=== PATIENT | female | born 1975 | race African-American/Black ===

== ENCOUNTER 2019-11-02 22:55 | Inpatient (IN) ==
[2019-11-03] MEDS ORDERED: NS 1,000 ML IV PRN (00:03)
[2019-11-03 01:18] LABS: URINE SOURCE CLEAN CATCH
[2019-11-03 01:22] LABS: BASO# 0.07 X1000 (0.0-0.2); BASO% 0.6 % (0.0-0.8); EOS# 0.17 X1000 (0.0-0.7); EOS% 1.4 % (0.0-10.0); HEMATOCRIT 40.5 % (37.0-47.0); HEMOGLOBIN 12.3 g/dL (12.0-16.0); IMM GRAN# 0.03 X1000 (0.0-0.04); IMM GRAN% 0.2 % (0.0-0.5); LYMPH# 4.16 X1000 (1.2-3.4); MCH 26.4 PG (27-31); MCHC 30.4 g/dL (33-37); MCV 86.9 FL (81-99); MONO# 0.89 X1000 (0.11-0.59); MONO% 7.3 % (1.7-9.3); MPV 9.8 FL (7.4-10.4); NEUT% 56.5 % (42.2-75.2); PLT 384 X1000 (130-400); RBC 4.66 XMIL (4.2-5.4); RDW 13.9 % (11.5-14.5); WBC 12.22 X1000 (4.8-10.8)
[2019-11-03 01:23] LABS: BILIRUBIN URINE NEGATIVE (NEGATIVE); BLOOD URINE TRACE (NEGATIVE); COLOR YELLOW; GLUCOSE URINE NEGATIVE (NEGATIVE); KETONE URINE NEGATIVE (NEGATIVE); LEUKOCYTES URINE SMALL (NEGATIVE); NITRITE URINE NEGATIVE (NEGATIVE); PH URINE 5.5; PROTEIN URINE NEGATIVE (NEGATIVE); SP GRAVITY URINE 1.027; TURBIDITY URINE CLEAR (CLEAR); UROBILINOGEN URINE NORMAL (NORMAL)
[2019-11-03 01:24] LABS: UR EPITHELIAL CELLS <10 /HPF (<10); URINE BACTERIA NEGATIVE /HPF; URINE RBC <10 /HPF (<10)
[2019-11-03 01:31] LABS: INR 0.9; PROTIME 12.3 Seconds (11.0-16.0)
[2019-11-03 01:32] LABS: PTT 29.3 Seconds (22.3-41.8)
[2019-11-03 01:47] LABS: UR AMPHETAMINES QUAL NONE DETECTED (NONE DETECT); UR BARBITUATES QUAL NONE DETECTED (NONE DETECT); UR BENZODIAZEPIN QUAL NONE DETECTED (NONE DETECT); UR CANNABINOIDS QUAL NONE DETECTED (NONE DETECT); UR COCAINE QUAL PRESUMPTIVE POSITIVE (NONE DETECT); UR METHADONE QUAL NONE DETECTED (NONE DETECT); UR OPIATES QUAL NONE DETECTED (NONE DETECT); UR OXYCODONE QUAL NONE DETECTED (NONE DETECT); UR PCP QUAL NONE DETECTED (NONE DETECT)
--- NOTE | 2019-11-03 01:50 | EKG Report ---
Test Performed on : 11/03/2019 01:13:06 AM Test Reason : Stroke like symptoms Blood Pressure : / mmHG Vent. Rate : 069 BPM Atrial Rate : 069 BPM P-R Int : 170 ms QRS Dur : 092 ms QT Int : 398 ms P-R-T Axes : 019 054 027 degrees QTc Int : 426 ms Normal sinus rhythm. Cannot rule out Anterior infarct , age undetermined Abnormal ECG No previous ECGs available Unconfirmed Result
--- NOTE | 2019-11-03 02:11 | PROVIDER DOCUMENTATION ---
This chart was entered by Yana Blanc Scribe, acting as scribe for Gilberto Montalvo MD. HPI-Neurological Disorder - General Chief Complaint: Headache Stated Complaint: BP PROBLEMS Time Seen by Provider: 11/03/19 00:02 Source: patient Allergies/Adverse Reactions: Patient Allergies Allergy/AdvReac Type Severity Reaction Status Date / Time No Known Allergies Allergy Verified 11/03/19 00:45 Home Medications: Home Medication List Medication Instructions Recorded Confirmed Last Taken Type Amlodipine Besylate [Norvasc] 10 tab PO DAILY 12/22/17 11/03/19 03/10/18 09:30 History - History of Present Illness-Neuro Nature of Presenting Problem: Pt is a 44 yobf presenting in the ED with c/o left sided headache and heavy feeling in her left side, arm and leg. Pt states that she sleeps heavily on her left side normally. Pt denies lack of sensation, numbness, or tingling or speech being affected, only heavyness to lt side of body. Pt has a hx of HTN. Pt is alert and nontoxic in appearance. Severity: reports: mild Onset/Duration: reports: unsure, 3 days ago Timing: reports: still present, constant Context: reports: none Character of Altered Mental Status: reports: N/A Any recent trauma/injury?: reports: none Character of Deficits: reports: altered sensation (pt describes feeling as "heaviness on left side") New weakness or altered sensation location:: reports: RUE (heaviness), RLE (heaviness) Cognitive Baseline: alert, oriented x3 Gait Baseline: walks without assistance Associated Symptoms: reports: headache (pt says left sided) Similar Symptoms Previously?: No Recently seen or treated by another doctor?: No Review of Systems - Adult - REVIEW OF SYSTEMS - ADULT Constitutional: denies: chills, fever Eyes: reports: no symptoms reported Ears, Nose, Mouth & Throat: reports: no symptoms reported Cardiovascular: denies: chest pain, syncope Respiratory: denies: cough, shortness of breath Gastrointestinal: denies: nausea, vomiting Genitourinary: reports: no symptoms reported Musculoskeletal: reports: no symptoms reported Integumentary: reports: no symptoms reported Neurological: reports: see HPI, headache/migraines, other (pt reports "heavy feeling in left side") Psychiatric: reports: no symptoms reported Endocrine: reports: no symptoms reported Hematologic/Lymphatic: reports: no symptoms reported Allergic/Immunologic: reports: no symptoms reported All Other Systems: Reviewed and Negative Past History - Adult - PAST MEDICAL HISTORY-ADULT Review of Records: reports: Old Records Reviewed, Nursing Assessment Review, Medications Reviewed, Social history reviewed & non-contributory. Major Childhood Illnesses: reports: denies history Cardiovascular: reports: HTN Respiratory: reports: denies history Gastrointestinal: reports: GERD Obstetrical/Gynecological: reports: denies history Genitourinary: reports: denies history Musculoskeletal: reports: denies history Neurological: reports: denies history Endocrine/Immune: reports: denies history Other Conditions: reports: denies history - PRIOR SURGERIES/PROCEDURES Surgical/Procedure History: reports: reviewed, not pertinent - IMMUNIZATION STATUS Childhood Immunizations: See Nurse Assessment Flu Vaccine: See Nurse Assessment - FAMILY HISTORY Family History: reviewed, not pertinent - SOCIAL HISTORY Living Situation: family Physical Exam- Neurological - Physical Exam-Neuro Initial Vital Signs Reviewed: Yes General Appearance: appears well, alert, no apparent distress, obese Eye Exam: bilateral eye: normal inspection, PERRL, EOMI HENMT: normocephalic/atraumatic, moist mucous membranes, normal ENT inspection Head Injury: no evidence of injury Neck: non-tender, full range of motion, supple, normal inspection Respiratory: chest non-tender, lungs clear, normal breath sounds, no pleuratic chest pain, no respiratory distress, no accessory muscle use Cardiovascular: normal peripheral pulses, regular rate, rhythm, no edema, no gallop, no JVD, no murmur Abdominal Exam: normal bowel sounds, non tender, soft, no organomegaly, no pulsatile mass Lymphatic: no adenopathy Extremity: normal range of motion, non-tender, normal gait, normal inspection, no pedal edema, no calf tenderness, normal capillary refill director of purchasing Exam: normal hearing, normal speech, PERRL Coordination/Gait: normal gait Motor/Sensory: no motor deficit, no sensory deficit Neurologic: grossly normal Integumentary: normal color, normal turgor, warm/dry Psych/Mental Status: normal mood/affect, normal thought content, normal thought process, oriented x 3 - Glascow Coma Scale Best Eye Response: (4) open spontaneously Best Verbal Response: (5) oriented Best Motor Response: (6) obeys commands Progress - PLAN OF CARE/RESULTS Progress/Plan/Lab Results: Vital Signs - 8 hr 11/02/19 23:00 11/03/19 01:30 Temperature 98.4 F 98.0 F Pulse Rate 73 71 Respiratory Rate 18 18 Blood Pressure 154/95 141/94 O2 Sat by Pulse Oximetry 97 Laboratory Results - last 24 hr 11/03/19 11/03/19 11/03/19 01:09 01:09 01:09 WBC 12.22 H RBC 4.66 Hgb 12.3 Hct 40.5 MCV 86.9 MCH 26.4 L MCHC 30.4 L RDW Std Deviation 13.9 Plt Count 384 MPV 9.8 Immature Gran % (Auto) 0.2 Neut % (Auto) 56.5 Lymph % (Auto) 34.0 Denali % (Auto) 7.3 Eos % (Auto) 1.4 Baso % (Auto) 0.6 Immature Gran # (Auto) 0.03 Neut # (Auto) 6.90 H Lymph # (Auto) 4.16 H Denali # (Auto) 0.89 H Eos # (Auto) 0.17 Baso # (Auto) 0.07 PT INR PTT (Actin FS) Troponin T High Sens < 6 Urine Source Urine Color Urine Turbidity Urine pH Ur Specific Hamilton Urine Protein Ur Glucose (Stick) Ur Ketones (Stick) Urine Blood Urine Nitrite Urine Bilirubin Urobilinogen Dipstick Urine Leukocytes Urine WBC (Auto) Urine RBC (Auto) U Epithel Cells (Auto) Urine Bacteria (Auto) Urine Opiates Screen NONE DETECTED Ur Oxycodone Screen NONE DETECTED Ur Methadone, Qual NONE DETECTED Ur Barbiturates Screen NONE DETECTED Ur Phencyclidine Scrn NONE DETECTED Ur Amphetamines Screen NONE DETECTED U Benzodiazepines Scrn NONE DETECTED Urine Cocaine Screen PRESUMPTIVE POSITIVE A U Cannabinoids Screen NONE DETECTED 11/03/19 11/03/19 01:09 01:09 WBC RBC Hgb Hct MCV MCH MCHC RDW Std Deviation Plt Count MPV Immature Gran % (Auto) Neut % (Auto) Lymph % (Auto) Denali % (Auto) Eos % (Auto) Baso % (Auto) Immature Gran # (Auto) Neut # (Auto) Lymph # (Auto) Denali # (Auto) Eos # (Auto) Baso # (Auto) PT 12.3 INR 0.90 PTT (Actin FS) 29.3 Troponin T High Sens Urine Source CLEAN CATCH Urine Color YELLOW Urine Turbidity CLEAR Urine pH 5.5 Ur Specific Hamilton 1.027 Urine Protein NEGATIVE Ur Glucose (Stick) NEGATIVE Ur Ketones (Stick) NEGATIVE Urine Blood TRACE A Urine Nitrite NEGATIVE Urine Bilirubin NEGATIVE Urobilinogen Dipstick NORMAL Urine Leukocytes SMALL A Urine WBC (Auto) 10-20 A Urine RBC (Auto) <10 U Epithel Cells (Auto) <10 Urine Bacteria (Auto) NEGATIVE Urine Opiates Screen Ur Oxycodone Screen Ur Methadone, Qual Ur Barbiturates Screen Ur Phencyclidine Scrn Ur Amphetamines Screen U Benzodiazepines Scrn Urine Cocaine Screen U Cannabinoids Screen Orders Category Date Time Status Cardiac Monitoring DIRECTED Care 11/03/19 00:03 Active Finger Stick Blood Sugar (ED) DIRECTED Care 11/03/19 00:03 Active Misc. NRSG Communication Order DIRECTED Care 11/03/19 00:03 Active Oxygen Therapy- ED Nursing DIRECTED Care 11/03/19 00:03 Active Saline Loc NOW Care 11/03/19 00:03 Active CHEST-PORTABLE [RAD] Stat Exams 11/03/19 00:[address] HEAD W/O CONTRAST [CT] Stat Exams 11/03/19 00:03 Taken CBC WITH ELECTRONIC DIFF [HEME] Stat Lab 11/03/19 01:09 Completed COMPREHENSIVE METABOLIC PANEL [CHEM] Stat Lab 11/03/19 01:09 Received PROTIME WITH INR [COAG] Stat Lab 11/03/19 01:09 Completed PTT [COAG] Stat Lab 11/03/19 01:09 Completed TROPONIN T HIGH SENSITIVITY Stat Lab 11/03/19 01:09 Completed URINALYSIS W/POSS RFLX CULT [URINALYSIS] Stat Lab 11/03/19 01:09 Completed URINE DRUG SCREEN Stat Lab 11/03/19 01:09 Completed 0.9% Sodium Chloride Inj [Ns] 1,000 ml Med 11/03/19 00:03 Active IV 125 mls/hr EKG [EKG] Stat Ther 11/03/19 00:03 Draft Result Diagrams: 11/03/19 01:09 - XRAY 1 XRAY Study: Chest Impression: See EMR Report - CT/MRI 1 CT Study: Head Impression: Normal ([facility] Madhav Arevalo MD; No CT evidence for an acute intracranial abnormality.) - CONSULTS/PCP/HOSPITALIST Notification #1 *Consult/PCP/Hospitalist*: Dr Mccloud Time Discussed: 02:07 Consult Disposition: Will see in ED, Admit Departure - Departure Date of Disposition Decision: 11/03/19 Time of Disposition Decision: 02:07 DIAGNOSIS: CVA (cerebral vascular accident), Substance abuse, HTN (hypertension) Disposition: ADMITTED INPATIENT 09 Certified Medical Emergency: Emergent Condition: Fair Referrals and Follow-Ups: Johnathan Ho MD [Primary Care Provider] - - Critical Care Note This patient required my direct & personal management of CC.: No Attestation - Physician/ APRIL Attestation Patient care was provided by Advanced Practice Provider:: No The physician spent face to face time with patient:: Yes Advanced Practice Provider documentation review:: Supervising physician onsite and consulted in the evaluation and care of this patient. The physician did have a face to face encounter with the patient. - NIH Stroke Scale NIH Type: Initial Evaluation Level of Consciousness: 0-Alert LOC Questions (ask month and age): 0-Answers Both Correctly LOC Commands (ask to open & close eyes;make a fist, let go): 0-Obeys Both Correctly Best Gaze (horizontal eye movement): 0-Normal Visual (use finger movement, counting or visual threat): 0-No Visual Loss Facial Palsy (show teeth or raise eyebrows & close eyes tght: 0-Symmetrical Movement Motor Function-left arm: 1-Drift Motor Function-right arm: 0-Normal Motor Function-left le-Drift Motor Function-right le-Normal Limb Ataxia(arwbcl-pzkk-[id number], or heel to bentley): 0-No Ataxia Sensory(pin prick to face,arms,trunk,legs-compare side/side): 0-No Ataxia Best Language(name item/read sentence.Ex-Down to Earth): 0-No Aphasia Dysarthria(Pt read words or say words Ex.Mama,Tip-Top,Thanks: 0-Normal Articulation Extinction and Inattention: 0-Normal Modified [place] Score Criteria: 0-no symptoms This chart was documented by the indicated scribe, (Yana Blanc, Scribe) and accurately reflects the services I performed and decisions made by me, Gilberto Montalvo MD, as attested by the provider's signature.
[2019-11-03 02:31] LABS: AGAP 16; BUN 14 mg/dL (8-22); CHLORIDE 99 mmol/L (98-107); COSMO 279; CREATININE 0.9 mg/dL (0.5-0.9); GLUCOSE 112 mg/dL (70-104); SODIUM 139 mmol/L (136-145); TCO2 24 mmol/L (25-35)
[2019-11-03 02:32] LABS: ALBUMIN 4.2 g/dL (3.5-5.0); ALKALINE PHOSPHATASE 85 U/L (32-104); CALCIUM 9.7 mg/dL (8.8-10.2); TOTAL BILIRUBIN 0.22 mg/dL (0.20-1.00); TOTAL PROTEIN 8.4 g/dL (6.3-8.3)
[2019-11-03 02:33] LABS: GOT 14 U/L (10-30); GPT 16 U/L (10-36)
[2019-11-03] MEDS ORDERED: ZOFRAN IV PRN (04:25)
[2019-11-03] MEDS ORDERED: TYLENOL PO PRN (04:25)
[2019-11-03] MEDS ORDERED: ASPIRIN EC PO ONE (04:26)
[2019-11-03] MEDS ORDERED: NS 1,000 ML IV SCH (04:45)
--- NOTE | 2019-11-03 07:04 | Diag Imaging Result Doc PS360 ---
CHEST-PORTABLE - 11/03/2019 INDICATION: stroke like symptoms COMPARISON: None FINDINGS: Lung volumes are low. Heart size is borderline enlarged. Pulmonary vascularity is normal. No infiltrates or edema. IMPRESSION: Low lung volumes. Borderline cardiomegaly. Electronically signed by Paul Webster 11/03/2019 7:02 AM
[2019-11-03 07:12] LABS: HEMOGLOBIN A1C 6.3 % (4.8-6.0)
--- NOTE | 2019-11-03 08:07 | Diag Imaging Result Doc PS360 ---
EXAM: CT HEAD W/O CONTRAST HISTORY: stroke like symptoms TECHNIQUE: CT head without contrast COMPARISON: None. FINDINGS: No parenchymal hemorrhage. No epidural or subdural hematoma. No subarachnoid hemorrhage. No mass identified on this noncontrasted exam. No hydrocephalus. No sinus opacification. IMPRESSION: No hemorrhage. Negative brain CT without contrast. A preliminary report was given at 12:33 AM This exam was performed using automated exposure control, adjustment of mA or kV according to patient size, and/or use of iterative reconstruction technique. Electronically signed by Ramirez Espinal 11/03/2019 8:05 AM
--- NOTE | 2019-11-03 08:11 | HISTORY AND PHYSICAL ---
PRIMARY CARE PROVIDER: Dr. Johnathan Ho. CHIEF COMPLAINT: Headache with a left-sided heavy feeling. HISTORY OF PRESENT ILLNESS: Ms. Osei is a 44-year-old, -[place] female who states that for approximately 4 to 5 days now that she has had a heavy feeling down the left side of her body. She has reported an intermittent headache with some occasional blurry vision. She also reports that she has had a heavy type feeling down the left side of her body, mainly in her left arm and left leg. She also reports that she occasionally has a tightness type feeling in her hand as though she has pulled a muscle. She does report some tingling in her left second toe. The patient does report a history of occasional headaches, though denies any known history of migraines. She denies any known history of previous CVA. She does report that she has high blood pressure and was recently out of her medicine for a short period of time, though states that she has gotten this filled and has been taking it over the last few days. She denies any dizziness or feeling lightheaded. She denies any chest pain or shortness of breath. She denies any cough. She denies any abdominal pain, nausea, vomiting, or diarrhea. She denies any dysuria or urinary frequency. The patient states she does have some arthritis pain in her left leg frequently. States she does work long hours and stands on her feet all day, though this is not of new onset and has not worsened. Other than this and her tingling that she reports in her left second toe, she denies any other pain, numbness, tingling, or swelling in extremities. She denies any fever, body aches, or chills. She denies being sick recently or being around anyone who has been sick or has had flu or upper respiratory symptoms. She denies any known exposure to any individuals who have been exposed to Covid-19 or have been diagnosed with Covid-19. Upon evaluation in the ER, the patient was noted to have mild leukocytosis with a white blood cell count of 12,220. She was mildly hyperglycemic with a glucose of 112. Other than this, all other chemistries were within normal limits. Urinalysis did show some trace blood, small leukocytes, and 10 to 20 white blood cells. Her urine was negative. She was positive for cocaine in her urine drug screen, though did deny using this illicit drug. In the ER, they did perform a chest x-ray which showed no acute abnormality, just showed some low lung volumes and borderline cardiomegaly. Her CT of the head did not show any acute intracranial abnormality either. At this time, the patient will be admitted for further evaluation of a possible CVA. REVIEW OF SYSTEMS: A 14 point review of systems was conducted with the patient and all were negative except for pertinent positives mentioned above in the HPI. PAST MEDICAL HISTORY: 1. Gastroesophageal reflux disease. 2. Hypertension. PAST SURGICAL HISTORY: Tubal ligation. SOCIAL HISTORY: The patient is a former smoker, though she stated she never smoked on a regular basis. It was only occasionally, kind of socially. She reports occasional alcohol use and states this is mainly on the weekends. As previously mentioned, she denies any illicit drug use. She did test positive for cocaine. The patient denies using this drug. FAMILY HISTORY: Positive for her mother and father both having diabetes mellitus and hypertension. She reports that her maternal aunt did have a history of stroke as well. ALLERGIES: Patient has no known allergies. HOME MEDICATIONS: Norvasc 10 mg p.o. daily. DIAGNOSTIC DATA/LABORATORY RESULTS: White blood cell count is 12,220, hemoglobin 12.3, hematocrit 40.5, platelet count is 384,000. PT 12.3, INR 0.9, PTT is 29.3. Sodium 139, potassium 4, chloride 99, serum bicarbonate is 24, BUN 14, creatinine 0.9, with a glucose of 112, calcium 9.7, magnesium 1.8. Liver function tests within normal limits. Troponin T high sensitivity was less than 6. Urinalysis was obtained via clean catch. It was positive for trace blood, small leukocytes, 10 to 20 white blood cells. It was negative for protein, glucose, ketones, nitrites, or bacteria. Her urine was negative. Urine drug screen was positive for cocaine. EKG showed normal sinus rhythm at a rate of 69 with a QTc of 426. Chest x-ray showed low lung volume and borderline cardiomegaly. The pulmonary vascularity was normal and there were no infiltrates or edema noted. CT of the head, which was read by the overnight radiologist, did show no evidence of acute intracranial abnormality. Pending diagnostic studies at this time are a urine culture. PHYSICAL EXAMINATION: VITAL SIGNS: Temperature 97.9 degrees, heart rate 73, respirations 16, blood pressure is 142/84, oxygen saturation is 99% on room air. GENERAL: Ms. Osei is a pleasant, 44-year-old, -Mexican female. She was resting on the ER stretcher. She was in no acute distress. She was awake, alert, and able to answer questions appropriately. HEENT: Head is atraumatic, normocephalic. Pupils are equal, round, reactive to light, were 3 mm bilaterally and brisk. EOMs were intact. Visual palomo were intact as well. Oral mucosa was moist. Oropharynx was clear. NECK: Supple. Trachea midline. No carotid bruits noted upon auscultation bilaterally. CARDIOVASCULAR: The patient had S1, S2 present. No murmurs, gallops, or rubs appreciated. Regular rate and rhythm. PULMONARY: Patient has symmetrical chest expansion bilaterally. Lung sounds are clear to auscultation in bilateral full palomo. ABDOMEN: Soft, nontender, nondistended. Bowel sounds were present in all 4 quadrants, were normoactive. EXTREMITIES: No cyanosis or edema noted. Pulse, motor, and sensory were intact in all extremities. Radial and pedal pulses were 2+ bilaterally. INTEGUMENTARY: The patient's skin color is normal for her race, is dry and intact. NEUROLOGICAL: The patient is alert and oriented to person, place, time, and situation. There were no focal neurological deficits noted. The patient did report a heaviness feeling on the left side of her body as well as an occasional tightness type feeling in her left arm which felt almost like a pulled muscle. She was reporting some tingling in her left second toe. Muscle strength and hand grasps were equal bilaterally. She did not have any arm drift noted. Speech was clear and understandable. She did not have any facial droop noted either. EOMs were intact, as well as visual palomo. ASSESSMENT AND PLAN: 1. Possible cerebrovascular accident. For further evaluation of this, we have ordered further studies and an MRI of the brain without contrast, as well as a carotid ultrasound and echocardiogram. We have ordered for a fasting lipid profile in the morning. The patient's serum glucose was slightly elevated. We have ordered a hemoglobin A1c also. She will have every 4 hour neurological checks and vital signs. We will await these results and continue to follow closely. 2. History of hypertension. The patient normally does take Norvasc. Rule out possible cerebrovascular accident. Her blood pressure is not elevated at this time. The last reading was 142/84. We will monitor this closely and allow for some likely permissive hypertension. We can implement antihypertensives as necessary. 3. Asymptomatic bacteriuria. A urine culture has been ordered. We will await these results and continue to follow. 4. Venous thromboembolism prophylaxis will be provided with sequential compression devices. 5. The patient has been placed on the medical floor with telemetry. She will have vital signs and neurological checks every 4 hours. Do strict intake and output. She will be nothing per oral except for medications until her lipid profile is drawn. Once she has had this collected, she can be on a heart healthy diet. The patient did receive an aspirin 325 mg by mouth upon admission. Further orders and recommendations pending hospital course, diagnostic studies, and physician evaluation. Dictated by JEANNA Lawrence for Kwabena Leon MD cc: Kwabena Leon MD
--- NOTE | 2019-11-03 10:35 | Diag Imaging Result Doc PS360 ---
MRI BRAIN W/O CONTRAST - 11/03/2019 INDICATION: Poss. CVA COMPARISON: Head CT 11/03/2019 FINDINGS: There is significant patient motion artifact. There is no area of restricted diffusion. The ventricles and sulci are normal in size and contour. No intracranial mass or hemorrhage. There are several tiny areas of white matter hyperintensity throughout the cerebral hemispheres bilaterally. These are scattered about and are mainly subcortical or deep white matter. IMPRESSION: 1. No stroke. 2. Several tiny cerebral white matter hyperintensities, nonspecific. This may represent an demyelinating disorder, unusual vasculitis, or Lyme disease. Electronically signed by Paul Webster 11/03/2019 10:33 AM
--- NOTE | 2019-11-03 12:56 | PROGRESS NOTE ---
DATE: 11/03/2019 INTERVAL HISTORY: No acute events overnight. SUBJECTIVE: Ms. Osei is complaining of some nonspecific left upper extremity and left lower extremity tingling. VITALS: Temperature 98.5 degrees, pulse rate 66, respiratory rate 20, blood pressure 150/88, saturating 98% on room air. PHYSICAL EXAMINATION: Oral cavity is moist. Morbidly obese. Air entry bilaterally equal. No wheeze, rhonchi, or crackles. S1, S2 normal. No murmur, rub, or gallop. Abdomen is soft, obese, nontender. No lower extremity edema. Neurological Examination: Alert and oriented x3. No facial asymmetry. Tongue appears midline. Speech is normal. Extraocular movements are equal vertically and horizontally. Shoulder shrug is normal bilaterally. Sensation intact to bilateral face, upper and lower extremities. Shoulder shrug is normal. Strength is 5/5 on all extremities. MRI findings noted to have some tiny cerebral white matter hyperintensities which were nonspecific. The patient denies known history of Lyme disease, sexually transmitted disease, or autoimmune disease. ASSESSMENT AND PLAN: 1. Nonspecific left upper and lower extremity tingling. 2. History of essential hypertension. 3. Active substance abuse. The patient admits that her symptoms started after smoking marijuana, though the urine toxicology is positive for cocaine. PLAN: The patient was counseled about weight reduction, stopping polysubstance abuse. I will consult neurology. I will also follow up with RPR, vitamin B12, Lyme disease. Plan of care discussed with the patient. Her questions have been answered. DISPOSITION: Anticipating discharge after neurology evaluation tonight or tomorrow. cc: Jair Cutler MD
--- NOTE | 2019-11-03 13:46 | NEUROLOGY CONSULTATION ---
DATE: 11/03/2019 Ms. Osei is 44 years old and she reports heaviness in the left limbs. She remembers feeling well several days ago and she went to a libertarian. She smoked pot and felt ill without specific symptom or focal neurologic features. She went home and rested. The next morning, she woke feeling sore "like a pulled muscle" in her left limbs. There was blood in her mouth. She did not find evidence of bowel or bladder incontinence. There was not a witnessed seizure event. She continued to feel heavy and sore in the left limbs. She presented to the hospital and was admitted. She reports she is much better today. Her urine drug screen was positive only for cocaine, interestingly negative for cannabis. She reports not using cocaine purposefully. She reports she wonders if the marijuana cigarette she smoked just prior to onset of these symptoms might have been laced with cocaine. She reports she has used marijuana in the past without similar problems. There is not history of significant head injury. She has never had previous diagnosed stroke, seizure, other neurologic event. She uses ethanol in moderation. She denies illicit drug use. She specifically denies drug withdrawal seizures. Workup here includes brain MRI which shows scattered tiny white matter hyperintensities, a little bit more prominent in the left hemisphere than the right but present bilaterally. Lab shows WBC 12,000, borderline blood sugars, A1c 6.3%, urine drug screen positive only for cocaine. She has been afebrile here. Heart rate has been stable 60s-70s. Systolic blood pressures have ranged 130s to 150s. She denies tick bite, snake bite, unusual exposure of any other sort, unexplained skin rash, fever, neck stiffness, close contact with sick people, recent travel. On exam, Ms. Osei is awake, alert, attentive, appropriate, oriented. Speech is consistent with her poor dentition and not truly dysarthric. There is no language deficit on brief bedside testing. Recent and remote memory are good. Head and neck are unremarkable. There is no meningismus. She has full visual palomo tested by confrontational finger counting. Extraocular movements are full. Facial motility is normal and symmetric. Facial sensation is intact to pinprick and light touch testing. Gag is intact. Tongue is midline. Palate is midline. She can hear. Shoulder shrug is equal. Strength is normal on careful testing in the arms and legs. She did well on [id number] testing bilaterally. She reports symmetric pinprick and light touch appreciation over the right and left limbs. Proprioception is normal at the great toe MTP joint bilaterally and at the second finger PIP joint bilaterally. I did not test her gait. Plantar response is flexor bilaterally. Reflexes are trace to 1+ at the ankles, 1+ at the knees, 1+ symmetrically at the wrists. IMPRESSION: Transient left limb heaviness with no definite neurologic deficit. There is imaging evidence of scattered tiny hyperintensities of uncertain clinical significance. We discussed possibility that cocaine-related vasoconstriction might produce this picture on imaging. There is nothing in her history or on exam to suggest vasculitis, Lyme disease or other NNP infection. The report that she woke up with soreness in the muscles and that there was evidence of tongue and/or cheek biting raises question of seizure. I will order EEG. Further plans will depend on the EEG report and on her clinical course. I encouraged her to take her medicines as directed and to avoid illicit drug use. I do not have any other suggestion from Neurology standpoint. Thanks for asking Neurology to see Ms. Osei. cc: MD ROCKY Lehman III
--- NOTE | 2019-11-03 21:17 | EEG REPORT ---
DATE: 11/03/2019 REFERRING: Anjum Davis III, MD BILLET CHECKER: Martha Valdez BACKGROUND INFORMATION/TECHNIQUE: This is a digitally recorded routine EEG with video. HISTORY: A 44-year-old, female patient with question of seizure. The patient went to a constitution party and smoked marijuana. The next morning, she woke up feeling sore in her limbs and had blood in her mouth. She continues to have soreness in heaviness in her limbs. Urine drug screen positive for cocaine. The EEG is ordered to detect evidence of seizures. EEG FINDINGS: A moderately well-formed 9 to 10 Hz posterior dominant alpha rhythm is seen symmetrically in the occipital regions and slightly anterior and attenuates with eye opening. The anterior background consists of mixed alpha and beta range frequencies. No definite persistent focal slowing. No epileptiform discharges. No seizures. Hyperventilation induces mild diffuse physiologic slowing. Photic stimulation induces a normal driving response. The patient becomes drowsy but stage II sleep is not seen. The EKG demonstrates regular intervals. IMPRESSION AND CLINICAL CORRELATION: Normal routine EEG in the awake and drowsy states. Of note, a normal EEG does not rule out epilepsy. cc: MD Anjum Stoll III, MD
[2019-11-04 07:49] VITALS: BP 135/86
[2019-11-04] MEDS ORDERED: NORVASC PO SCH (09:00)
--- NOTE | 2019-11-04 11:06 | ECHO REPORT ---
ORDER DATE: 11/03/2019 MEASUREMENTS: Septal thickness 1.2, left ventricular internal diameter end-diastole 4.6, posterior wall thickness 0.9, left ventricular internal diameter end-systole 3.6, aortic root 3.2, left atrium 3.5. SUMMARY: 1. Fair quality study. 2. The aortic valve is trileaflet and opens normally on 2-dimensional images. The peak gradient across aortic valve is 6 mmHg. Mitral, tricuspid and pulmonic valves are without evidence of structural abnormality with mild pulmonic insufficiency. The aortic root is normal in size. 3. Normal left ventricular dimensions suggested. The estimated left ventricular ejection fraction appears to be at least 55%. No regional wall motion abnormality is evident. Doppler suggests grade 1 left ventricular diastolic dysfunction. The left atrium, right atrium, right ventricle are normal size with grossly preserved right ventricular systolic function. 4. No pericardial effusion. 5. The inferior vena cava not well demonstrated. CONCLUSIONS: 1. No significant valvular abnormality. 2. Estimated left ventricular ejection fraction at least 55%. 3. Grade 1 left ventricular diastolic dysfunction suggested. cc: Lawrence Vincent MD
--- NOTE | 2019-11-04 13:13 | NEUROLOGY PROGRESS NOTE ---
DATE: 11/04/2019 SUBJECTIVE: Ms. Osei reports she feels almost completely recovered. There is a little bit of soreness remaining in the left limbs, but she is not limited now. She reports to me she has been up walking and she has been able to use her left arm. Echocardiogram showed ejection fraction at least 55%, no thrombus and no valvular abnormality. No new imaging reports. I do not have any new suggestions today. I think it would be reasonable to consider repeating brain MRI with contrast in 6 to 12 months, sooner if she has further neurologic event. I discussed that suggestion with her yesterday. I strongly encouraged her to avoid illicit drugs, to take her medicines as directed, and to keep followup in her primary clinic. I will be glad to see her as an outpatient, if needed. Thanks for asking Neurology to see Ms. Osei. cc: MD ROCKY Lehman III
--- NOTE | 2019-11-04 14:46 | DISCHARGE SUMMARY ---
ADMISSION DATE: 11/03/2019 DISCHARGE DATE: 11/04/2019 DISCHARGE DISPOSITION: Home. DISCHARGE CONDITION: Hemodynamically stable. She does not have any weakness of left upper and lower extremities. Her tingling of the left arm is improving. She was advised to continue to take antihypertensive medication, aspirin. A prescription has been provided to her. She was advised to work on weight reduction and quitting recreational substance use. She understood it. DISCHARGE DIAGNOSES: 1. Transient ischemic attack, likely because of transient vasospasm of intracranial blood vessel in the setting of cocaine use. 2. History of essential hypertension, noncompliance with medication. 3. Morbid obesity. 4. Active substance abuse with marijuana, though urine toxicology was positive for cocaine, which the patient did not know. OTHER DIAGNOSES: 1. History of essential hypertension. 2. History of gastroesophageal reflux disease. DISCHARGE MEDICATIONS: 1. Amlodipine 5 mg daily, 30 tablets have been prescribed with 1 refill. 2. Aspirin 81 mg daily 30 tablets have been prescribed. PHYSICAL EXAMINATION: Vital Signs: At the time of discharge, temperature 97.8 degrees, pulse 68, respiratory 18, blood pressure 135/86, saturating 98% room air. General: Morbidly obese, not in acute distress. HEENT: Oral cavity is moist. Lungs: No wheezes or crackles. Heart: S1 normal. No murmurs or gallops. Abdomen: Soft, nontender. Extremity: No lower extremity edema. Neurologic: She is alert and oriented x3. No facial droop. She is able to raise both upper and lower extremities above ground level. Her speech is normal. LABS: At the time of admission/discharge: WBC 12,000, hemoglobin 12.3, platelets 384,000. INR 0.9, BUN 14, creatinine 0.9, hemoglobin 6.3. She also had prediabetes. Urinalysis had trace small leukocytes. Urine toxicology was positive for cocaine. RPR was nonreactive. Vitamin B level 628. Microbiology; urine culture did not have any growth. IMAGING DURING HOSPITAL ADMISSION: Chest x-ray on presentation had low lung volumes. Head CT did not have any hemorrhage or acute stroke. Echocardiogram did not have any significant valvular abnormality, and she had an ejection fraction 55% with grade 1 ventricular diastolic dysfunction. Brain MRI did not have any stroke. There were several tiny cerebral white matter hyperintensities which are nonspecific. However, there was a possibility of demyelinating disorder or unusual vasculitis or Lyme disease. She was advised to have outpatient followup with Neurology and to have repeat MRI in 6 months' time CONSULTATION DURING HOSPITAL ADMISSION: Neurology, Dr. Davis. PROCEDURES DURING HOSPITAL ADMISSION: EEG which did not have any epileptiform discharges, essentially a normal EEG without any seizures. HOSPITAL COURSE SUMMARY: Ms. Osei is a 44-year-old lady with past medical history of essential hypertension, who presented on 11/03/2019 with chief complaint of heaviness of left-sided upper and lower extremities associated with some tingling of the left thumb and left ankle. The patient apparently was at her friend's house and she had smoked some marijuana and after smoking marijuana, she was not feeling well and she had an episode of vomiting. The next day she woke up and she had started feeling heaviness in the left upper and left lower extremities. She also had some tingling of the left hand muscles. She thought she may have pulled a muscle during sleep. However, her symptoms did not get better, so she decided to come to the hospital. On arrival, she was found to have temperature of 98.4 degrees, respiratory rate of 18, pulse of 73. Her blood pressure was 154/94, and she was saturating 97% on room air. Initial labs were unremarkable except WBC of 12,[address] did not have any intracranial hemorrhage. However, considering her stroke-like symptoms, she was admitted for further management. Neurology team was also involved in her care. Brain MRI/echocardiogram did not have any significant abnormalities, except some hyperintensities in the brain, though she did not have any known history of exposure to Lyme disease or family history of demyelinating disorders and her symptoms had resolved on the day after admission. It was thought that her symptoms were related to transient vasospasm of intracranial cranial blood vessel that was secondary to use of cocaine or any other recreational substances and she was advised to stay away from it. She was also advised to have outpatient follow up with Neurology for repeat MRI a few months later. She was given prescription of amlodipine. TIME SPENT: There were 25 minutes spent discharging the patient. She was allowed to ask questions. All of her questions satisfactorily answered. cc: Jair Cutler MD
[2019-11-05 12:12] LABS: LYME DISEASE SCREEN SEE COMMENTS
== END 2019-11-04 14:56 | disposition home or self-care (01) | DRG 69 ==
LOC: 3N 22:55 → ED 22:55 → OBSVTOIN 11-03 03:42 → SUATTDRO 11-03 03:42
PROVIDERS: ATTEND Internal Medicine